=== PATIENT | male | born 1935 | race Caucasian/White ===

== ENCOUNTER 2025-03-29 09:56 | Outpatient (CLI) | payer MEDICARE, BC ==
[~2025-03-29] VITALS: Ht 177.8 cm; Wt 73.5 kg
[~2025-03-29 09:56] MED LIST: AMI200T PO; APIX2.5T PO; ATOR20TA66 PO; CLOP75TA34 PO; FERR325T35 PO; FURO20TA4 PO; IPRA3AMP9 NEB; LOSA1TAB41 PO; METO25TA6 PO; PANT40TA54 PO; POTA-206 PO; SUCR1TAB PO; TIMO5DRO44 EACHEYE
[2025-03-29] MEDS: albuterol 2.5 MG/3 ML nebule NEB PRN (11:00)
[2025-03-29 11:01] VITALS: PULSE 67; RESP 16; O2SAT 99
[2025-03-29 11:12] VITALS: PULSE 66; RESP 16
--- NOTE | 2025-03-29 15:22 | PROCEDURE NOTE - Respiratory ---
Procedure Note-Respiratory Providers to Copies To 1: VERONIQUE POLLARD MD Procedure Name: This is a complete pulmonary function study dated March 29, 2025. Hemoglobin measurement was done as part of the study. Spirometry measurements: Both the forced vital capacity and the FEV1 are normal. The FEV1 ratio is clearly reduced. Some of the flow rates are reduced as well. After inhaled bronchodilator was given, there is not much change in the flow volume curve. Lung volume measurements: All of the major lung volume determinations are normal. Lung diffusion measurement: The DLCO measurement is normal. It is noted that the patient shows evidence for mild anemia with hemoglobin measuring at 10.4 grams/deciliter. Airway resistance measurement: The airway resistance is normal. Overall conclusion: This study shows abnormality. There is evidence for obstructive ventilatory defect in the [id number]-[id number] category. The lung volume measurements and the lung diffusion capacity remain within normal limits. The obstructive ventilatory defect may relate to the patient's recent problem with acute pneumonia. Alternatively, this patient may be showing asthmatic tendencies. Clinical correlation is suggested. There is no evidence for amiodarone pulmonary toxicity based on this study. Should this patient remain on amiodarone, it is recommended that repeat pulmonary function testing be done in approximately one year. It is noted that the patient also is showing evidence of mild anemia. JESE TREVINO MD March 29, 2025 15:22
== END 2025-03-29 23:59 | disposition home or self-care (01) ==
LOC: RT 09:56
PROVIDERS: ATTEND Internal Medicine Cardiovascular Disease
DX: R06.02 Shortness of breath (principal)
CPT/HCPCS: 94060; 94727; 94729; 94760